=== PATIENT | female | born 1965 | race Hispanic/Latino ===

== ENCOUNTER → 2017-11-15 | Day surgery (SDC) | payer SELFPAY ==
[~2017-11-15] MED LIST: BACITRACIN 50,000 UNIT VIAL ONE; CEFAZOLIN SOD 1 GM VIAL ONE; DEXAMETHASONE SOD PHOS INJ 4 MG/ML VIAL ONE; EPHEDRINE SULFATE INJ 50 MG/10 ML SYR ONE; FENTANYL CITRATE/PF 100MCG/2 ML INJ ONE; LIDOCAINE HCL 2% LOCAL INJ 5 ML SDV VIAL INJ ONE; MEPERIDINE HCL INJ 50 MG/ML INJ ONE; MIDAZOLAM HCL 2 MG/2 ML VIAL ONE; MUPIROCIN 2% OINT 22 GM TUBE ONE; ONDANSETRON HCL INJ 2 MG/ML VIAL ONE; PHENYLEPHRINE HCL 1% 10 MG/ML VIAL ONE; PROPOFOL IV EMULSION 10 MG/ML 20 ML VIAL ONE; SEVOFLURANE INHAL SOLN 250 ML PEN BTL ONE; VASOPRESSIN INJ 20 UNIT/ML VIAL ONE
[2017-11-15 10:30] VITALS: BP 128/87
--- NOTE | 2017-11-15 11:51 | Operative Report ---
DATE OF PROCEDURE: November 15, 2017 PREOPERATIVE DIAGNOSIS: Implant deflation bilateral, right greater than left. POSTOPERATIVE DIAGNOSIS: Implant deflation bilateral, right greater than left; capsular contracture bilateral. OPERATION PERFORMED 1. Removal of bilateral saline implants. 2. Capsulectomies, bilateral. 3. Placement of bilateral silicone implants. ANESTHESIA: General. HISTORY: The patient is a 52-year-old female who says that approximately 8 years ago she underwent bilateral saline implants placement in a subpectoral position. Recently, she has noted that the right side has been slowly deflating. When she presented for her preoperative consultation at the end of last week, she had complete deflation of the implant. The left side is presumed to have a small amount of deflation as well given the chronicity of the implants. The risks, benefits and alternatives of treatment were discussed with the patient. She was made aware that capsulotomies will need to be made in order to recreate the pocket and that there may be some asymmetry because of this. The patient has signed [employer] consent form for the aforementioned procedure. PROCEDURE IN DETAIL: The patient was marked preoperatively in the holding area in the upright position. She was brought to the operating theater. After the induction of adequate general anesthesia, she was prepped and draped in the supine position, and a time out was performed. The procedure was begun by marking out the inframammary incisions underneath both breasts. They are located just at the superior edge of the inframammary folds. The previous incisions were approximately 5 to 6 cm long, and they were increased in length to 7.5 cm, with the extension continued laterally. The incision under the right breast was then made through the skin and subcutaneous tissues, and the previous scar was excised. The incision was deepened through the subcutaneous and breast tissue until the capsule was identified. Using the electrocautery, the capsule was incised, and the deflated implant was retrieved and removed. It was inspected, and it was noted to be intact, however deflated. The pocket was inspected and was clean. There was no exudate noted within it. However, significant contracture of the pocket was made note of. Using the solano previously made on the skin, the pocket was incised through the capsule approximately 2 cm above the chest wall in a horizontal manner in order to allow the release of the soft tissues and accommodate the implant. The capsulotomies were made hemostatic using the electrocautery. At this point, a 750-mm, high-profile implant was prepared per marine fireman's specifications. Lot number and serial number are located within the patient's chart. The pocket was then irrigated with antibiotic-containing solution and a dilute Betadine solution. The implant was then placed in the breast pocket. It was noted that some adjustments to the pocket were still required because of the tension on the soft tissues. The implant was removed and placed back into its sterile container with Betadine solution. The areas of release were marked, and these were attended to using the electrocautery from within the pocket. After these areas were released, inspection was made to make sure that the pocket was hemostatic. It was then irrigated with antibiotic-containing solution followed by Betadine solution once again. The implant was placed back into the right breast pocket, and it was noted to have a good contour of the soft tissues over the implant without any undue tension or retraction. At this point, the deep tissue was closed using 3-0 Monocryl in an interrupted fashion. A 4-0 Monocryl was used in an interrupted buried fashion to approximate the deep dermis. Finally, a 5-0 Monocryl was used in a running subcuticular fashion. Steri-Strips were placed on the incision. Attention was then turned to the left breast. The incision was excised through the skin and subcutaneous tissues. Then the incision was deepened through the subcutaneous and breast tissue using the electrocautery. The capsule was identified. The capsule was incised using the electrocautery. The implant was removed. It was noted to be marginally deflated with volume somewhere around 650 to 700 mL remaining. The pocket was inspected. There was no exudate, and it appeared clean. At this point, the pocket was irrigated with antibiotic-containing solution followed by a dilute Betadine solution. Once again, the 750-mL, high-profile implant was prepared per marine fireman's specifications. The lot number and serial number are located within the patient's chart. The implant was then placed in the left breast pocket, and the pocket was noted to be of adequate size so that there was no tension on the soft tissue as it is draped over the implant. At this point, the capsule was then closed using 3-0 Monocryl in an interrupted fashion. The deeper tissues were closed with 4-0 Monocryl in an interrupted buried fashion. Finally, a 5-0 Monocryl running subcuticular stitch was used. Steri-Strips were applied. Sterile dressings were applied over the Steri-Strips, and Tegaderm dressings were applied. The patient was then placed in a postsurgical compressive bra with extra padding along the lateral aspect to maintain the implants in a medial position. She tolerated the procedure well. Estimated blood loss for the procedure was approximately 50 to 75 mL. She was returned to the recovery room in satisfactory condition and discharged with a postoperative instruction sheet as well as a followup appointment. Job#: [id number]
== END | disposition home or self-care (01) ==
LOC: OR 05:16
PROVIDERS: ATTEND Plastic Surgery
DX: T85.898A Other specified complication of other internal prosthetic devices, implants and grafts, initial encounter (principal); T85.44XA Capsular contracture of breast implant, initial encounter; N64.81 Ptosis of breast; M54.2 Cervicalgia; F17.210 Nicotine dependence, cigarettes, uncomplicated; Y83.4 Other reconstructive surgery as the cause of abnormal reaction of the patient, or of later complication, without mention of misadventure at the time of the procedure
CPT/HCPCS: 19340; 19371; 81025; 93005; J0690; J1100; J2001; J2175; J2250; J2370; J2405